=== PATIENT | female | born 1975 | race American Indian/Alaskan Native ===

== ENCOUNTER 2021-06-08 13:14 | Emergency (ER) | payer SELFPAY ==
--- NOTE | 2021-06-08 21:49 | Emergency Department Report ---
ED Psych HPI - General Chief Complaint: Psych Stated Complaint: BIPOLAR OUT OF MEDS Time Seen by Provider: 06/08/21 21:42 Source: patient, EMS Mode of arrival: Stretcher - History of Present Illness Initial Comments: Patient is 46 years old female with history of bipolar disorder. Patient presented to the ER stating that she wanted medication refill for her psychiatric medication. Patient stated that she is out of her Depakote for approximately 1 and half weeks now. Patient denied any suicidal or homicidal ideation. No visual or auditory hallucination. Patient stated that she felt that she need to be admitted because she feels that she is not stable. Patient is unable to elaborate more. MD Complaint: other - Related Data Previous Rx's Medication Instructions Recorded Last Taken Type Divalproex ER [DepaKOTE ER] 500 mg PO BID 30 Days #60 tablet 06/09/21 Unknown Rx Ziprasidone [Geodon] 60 mg PO DAILY 30 Days #30 capsule 06/09/21 Unknown Rx Allergies Allergy/AdvReac Type Severity Reaction Status Date / Time olanzapine Allergy Headache Verified 06/08/21 13:17 ED Review of Systems ROS: Stated complaint: BIPOLAR OUT OF MEDS Other details as noted in HPI Comment: All other systems reviewed and negative Constitutional: denies: chills, fever Respiratory: denies: cough, shortness of breath, SOB with exertion Cardiovascular: denies: chest pain, palpitations Gastrointestinal: denies: abdominal pain, nausea, vomiting Musculoskeletal: denies: back pain Neurological: denies: headache, weakness, numbness, paresthesias, confusion Psychiatric: denies: depression, auditory hallucinations, visual hallucinations, homicidal thoughts, suicidal thoughts ED Past Medical Hx - Medications Home Medications: Home Medications Medication Instructions Recorded Confirmed Last Taken Type Divalproex ER [DepaKOTE ER] 500 mg PO BID 30 Days #60 tablet 06/09/21 Unknown Rx Ziprasidone [Geodon] 60 mg PO DAILY 30 Days #30 capsule 06/09/21 Unknown Rx ED Physical Exam - General Limitations: No Limitations General appearance: alert, in no apparent distress - Head Head exam: Present: atraumatic, normocephalic, normal inspection - Eye Eye exam: Present: normal appearance - ENT ENT exam: Present: normal exam, normal orophraynx, mucous membranes moist - Neck Neck exam: Present: normal inspection, full ROM. Absent: tenderness, meningismus - Respiratory Respiratory exam: Present: normal lung sounds bilaterally - Cardiovascular Cardiovascular Exam: Present: regular rate, normal rhythm, normal heart sounds - GI/Abdominal GI/Abdominal exam: Present: soft, normal bowel sounds. Absent: distended, tenderness, guarding, rebound, rigid, organomegaly, mass, bruit, pulsatile mass, hernia - Extremities Exam Extremities exam: Present: normal inspection, full ROM, normal capillary refill. Absent: tenderness - Back Exam Back exam: Present: normal inspection, full ROM. Absent: CVA tenderness (R), CVA tenderness (L) - Neurological Exam Neurological exam: Present: alert, oriented X3, CN II-XII intact, normal gait, reflexes normal. Absent: motor sensory deficit - Psychiatric Psychiatric exam: Absent: homicidal ideation, suicidal ideation - Skin Skin exam: Present: warm, intact, normal color ED Course Vital Signs 06/08/21 06/09/21 06/09/21 13:19 09:08 14:32 Temperature 98.6 F 98.5 F Pulse Rate 89 77 60 Respiratory 16 18 16 Rate Blood Pressure 150/90 142/90 142/90 [Left] O2 Sat by Pulse 97 99 98 Oximetry ED Medical Decision Making - Lab Data Result diagrams: 06/08/21 21:51 06/08/21 21:51 - Medical Decision Making Patient is 46 years old female with history of bipolar disorder. Patient presented to the ER stating that she wanted medication refill for her psychiatric medication. Patient stated that she is out of her Depakote for approximately 1 and half weeks now. Patient denied any suicidal or homicidal ideation. No visual or auditory hallucination. Patient stated that she felt that she need to be admitted because she feels that she is not stable. Patient is unable to elaborate more. Labs reviewed and is unremarkable however urinalysis and UDS is still pending. Patient is medically cleared to be evaluated by psychiatric team. Critical care attestation.: If time is entered above; I have spent that time in minutes in the direct care of this critically ill patient, excluding procedure time. ED Disposition Clinical Impression: Bipolar disorder, Schizophrenia Disposition: HOME / SELF CARE / HOMELESS Is pt being admited?: No Condition: Stable Instructions: Managing Bipolar Disorder, Schizophrenia Additional Instructions: Professional and Agency Contacts To help [facility](13/09) [place] Crisis Line: Suicide Prevention Line: Crisis Text Line: Text START to 160768 Emergency: 911 Outpatient COMMUNITY Behavioral Health Resources: [place]: [facility] [address], [place] [address] MANN: [facility] [address] [place] [address] DEB[place]AH: [facility] - [address] [place] [address] Tuesday thru Tuesday - 8am - 5pm [place]: [facility] Service Address: [address], [place] [address] [place]: [facility] Address: [address] [place] [address] Tuesday thru Tuesday- 7am-2pm [facility] Address: [address] [place] [address] Tuesday thru Tuesday: 8:30AM-5PM OUTPATIENT MENTAL HEALTH RESOURCES [facility], [address] [place] [address] [facility] Suma Kowalski MD: [address] [facility] Otilio [address], [place] [id number] [facility]: [address] [place] [address] [facility] [place], [place] [id number] [phone] [facility]: [address] [facility] [address] [place] [address] [phone] [facility]: [address] [facility] Otilio. [address] [facility] [id number] [facility]: [facility] [place], [place] Audi Garcia MD: [address] [facility] [id number] [facility]: [address] [facility] [place], [place] [id number] [phone] [place] CRISIS AND ACCESS LINE: * Prescriptions: Divalproex ER [DepaKOTE ER] 500 mg PO BID 30 Days #60 tablet Ziprasidone [Geodon] 60 mg PO DAILY 30 Days #30 capsule Referrals: PRIMARY CARE, [Primary Care Provider] - 3-5 Days
[2021-06-08 22:04] LABS: Basophils % (Auto) 0.7 % (0.0-1.8); Eosinophils # (Auto) 0.2 K/mm3 (0.0-0.4); Eosinophils % (Auto) 2.8 % (0.0-4.3); Hematocrit 29.9 % (30.3-42.9); Hemoglobin 9.8 gm/dl (10.1-14.3); Lymphocytes # (Auto) 2.4 K/mm3 (1.2-5.4); Mean Corpuscular HGB Conc 33 % (30-34); Mean Corpuscular Volume 80 fl (79-97); Monocytes # (Auto) 0.9 K/mm3 (0.0-0.8); Monocytes % (Auto) 14.5 % (0.0-7.3); Platelet Count 147 K/mm3 (140-440); Red Blood Count 3.72 M/mm3 (3.65-5.03); Red Cell Distribution Width 15.4 % (13.2-15.2)
[2021-06-08 22:20] LABS: Blood Urea Nitrogen 10 mg/dL (7-17); Calcium 9.1 mg/dL (8.4-10.2); Hemolysis Index 5
[2021-06-08 22:24] LABS: Alanine Aminotransferase 8 units/L (7-56); Albumin 3.7 g/dL (3.9-5)
[2021-06-08 22:36] LABS: BUN/Creatinine Ratio 14; Bilirubin,Direct < 0.2 mg/dL (0-0.2)
[2021-06-08 23:30] LABS: Bilirubin,Urine NEG (Negative); Blood,Urine NEG (Negative); Color,Urine Straw (Yellow); Protein,Urine <15 mg/dL mg/dL (Negative); Urobilinogen,Urine < 2.0 mg/dL (<2.0); WBC,Urine < 1.0 /HPF (0.0-6.0)
[2021-06-08 23:37] LABS: RBC,Urine < 1.0 /HPF (0.0-6.0)
[2021-06-08 23:38] LABS: Amphetamine Screen,Urine PRESUMPTIVE NEGATIVE; Benzodiazepines Screen,Urine PRESUMPTIVE NEGATIVE; Cannabinoid Screen,Urine PRESUMPTIVE NEGATIVE; Cocaine Screen,Urine PRESUMPTIVE NEGATIVE; Methadone Screen,Urine PRESUMPTIVE NEGATIVE; Opiate Screen,Urine PRESUMPTIVE NEGATIVE
[2021-06-09 09:09] VITALS: BP 142/90
--- NOTE | 2021-06-09 10:54 | Consultation ---
History of Present Illness - Reason for Consult Consult date: 06/09/21 Reason for consult: mental health evaluation - History of Present Psychiatric Illness The patient is a 46 year old female with history of bipolar, schizophrenia, and ADHD. The patient was seen today. She is calm, alert and oriented x3. The patient states that she ran out of her meds about 4 weeks ago. She denies any current suicidal/homicidal ideation and denies hallucinations. PAST PSYCHIATRIC HISTORY: Diagnoses: Bipolar, schizophrenia,ADHD, Suicide attempts or Self-harm behavior: Denies Prior psychiatric hospitalizations: Yes Substance Abuse history: Denies Previous psychiatric medications tried: Depakote, Haldol, Zoloft, Zyprexa, Geodon Outpatient treatment: Denies PAST MEDICAL HISTORY: None reported or document Family Psychiatric History: None reported or documented SOCIAL HISTORY Marital Status: Single Living Arrangements: Lives with room mate Employment Status: Unemployed Access to guns/weapons: Denies Education: 2 year college History of Abuse: Denies Legal History: Denies REVIEW OF SYSTEMS Constitutional: Negative for weight loss ENT: Negative for stridor Respiratory: Negative for cough or hemoptysis All other systems reviewed and are negative MENTAL STATUS EXAMINATION General Appearance and Behavior: Age appropriate, good hygiene, wearing appropriate clothes. distracted, cooperative Cooperation: Psychomotor Behavior: Psychomotor normal Mood: Calm Affect and affective range: congruent with stated mood Thought Process:Goal directed Thought Content: Reality oriented Speech: Normal volume, Regular rate and rhythm Suicidal Ideation: Denies Homicidal Ideation: Denies Hallucinations: Denies Delusions: none elicited Impulse Control: impaired Insight and Judgment: Limited Memory: limited Attention: Distracted Orientation: alert and oriented Assessment and Plan (1) HX Schizophrenia Treatment Plan Continue Depakote Er 500mg po BID Continue Geodon 60mg po daily Continue home meds Sitter: refer to medical Medical: per primary Disposition:Do not recommend acute psychiatric inpatient treatment. [facility] will provide patient with psychiatric out patient resources. Will sign off. Thanks Case staffed with Dr. Caba Medications and Allergies Medications and Allergies Allergies Allergy/AdvReac Type Severity Reaction Status Date / Time olanzapine Allergy Headache Verified 06/08/21 13:17 Home Medications Medication Instructions Recorded Confirmed Last Taken Type Divalproex ER [DepaKOTE ER] 500 mg PO BID 30 Days #60 tablet 06/09/21 Unknown Rx Ziprasidone [Geodon] 60 mg PO DAILY 30 Days #30 capsule 06/09/21 Unknown Rx Mental Status Exam - Vital signs Last Vital Signs Temp 98.6 F 06/09/21 09:08 Pulse 77 06/09/21 09:08 Resp 18 06/09/21 09:08 BP 142/90 06/09/21 09:08 Pulse Ox 99 06/09/21 09:08 Results Result Diagrams: 06/08/21 21:51 06/08/21 21:51 Abnormal lab results 06/08/21 06/08/21 06/08/21 Range/Units 21:51 21:51 21:51 Hgb 9.8 L (10.1-14.3) gm/dl Hct 29.9 L (30.3-42.9) % MCH 26 L (28-32) pg RDW 15.4 H (13.2-15.2) % Lymph % (Auto) 38.0 H (13.4-35.0) % Payne % (Auto) 14.5 H (0.0-7.3) % Payne # (Auto) 0.9 H (0.0-0.8) K/mm3 Albumin (3.9-5) g/dL Salicylates < 0.3 L (2.8-20.0) mg/dL Acetaminophen 5.0 L (10.0-30.0) ug/mL 06/08/21 Range/Units 21:51 Hgb (10.1-14.3) gm/dl Hct (30.3-42.9) % MCH (28-32) pg RDW (13.2-15.2) % Lymph % (Auto) (13.4-35.0) % Payne % (Auto) (0.0-7.3) % Payne # (Auto) (0.0-0.8) K/mm3 Albumin 3.7 L (3.9-5) g/dL Salicylates (2.8-20.0) mg/dL Acetaminophen (10.0-30.0) ug/mL All other labs normal.
--- NOTE | 2021-06-09 12:18 | Emergency Department Report ---
Blank Doc - Documentation Documentation: 46-year-old female with bipolar, schizophrenia, ADHD presents to the hospital with medication noncompliance requesting a refill on her psychiatric medications. Patient was evaluated by mental health nurse practitioner this a.m. and the stable for discharge with refill of medications
== END 2021-06-09 14:33 | disposition home or self-care (01) ==
LOC: ED 13:14
DX: F31.9 Bipolar disorder, unspecified (principal); F20.9 Schizophrenia, unspecified; Z88.8 Allergy status to other drugs, medicaments and biological substances; Z79.899 Other long term (current) drug therapy
CPT/HCPCS: 36415; 80048; 80076; 80307; 80320; 81001; 85025; 99284; G0480